=== PATIENT | female | born 1950 | race Caucasian/White ===

== ENCOUNTER → 2016-10-21 | Outpatient (CLI) | payer MEDICARE, BC ==
--- NOTE | 2016-10-21 11:40 | MM ---
Reason for exam: additional evaluation requested from prior study. Last mammogram was performed 1 year ago. History: Patient is postmenopausal. Benign ultrasound-guided cyst aspiration of the right breast, 2009. Benign excisional biopsy of the right breast, 2000. Took hormonal contraceptives for 2 years beginning at age 20. Physical Findings: Nurse Summary: 1cm nodule in the left breast at 1 o'clock (nurse johan). MG 3D Diag Mammo W/Cad KAYLEE Bilateral CC and MLO view(s) were taken. Prior study comparison: October 26, 2015, left breast MG 3d work up w/cad LT. October 20, 2015, bilateral MG screening mammo w CAD. There are scattered fibroglandular densities. Asymmetric breast tissue in the left breast. No significant new findings when compared with previous films. These results were verbally communicated with the patient and result sheet given to the patient on 10/21/16. ASSESSMENT: Benign, BI-RAD 2 RECOMMENDATION: Routine screening mammogram of both breasts in 1 year.
--- NOTE | 2016-10-21 11:41 | USB ---
Reason for exam: additional evaluation requested from prior study. History: Patient is postmenopausal. Benign ultrasound-guided cyst aspiration of the right breast, 2009. Benign excisional biopsy of the right breast, 2000. Took hormonal contraceptives for 2 years beginning at age 20. US Breast Limited LT Left breast ultrasound demonstrates no cystic or solid lesion seen. These results were verbally communicated with the patient and result sheet given to the patient on 10/21/16. ASSESSMENT: Negative, BI-RAD 1 RECOMMENDATION: Routine screening mammogram of both breasts in 1 year.
== END | disposition home or self-care (01) ==
LOC: RADMAMWWP 10:17
PROVIDERS: ATTEND Family Medicine
DX: R92.8 Other abnormal and inconclusive findings on diagnostic imaging of breast (principal)
CPT/HCPCS: 76642; G0204; G0279

== ENCOUNTER → 2016-11-15 | Outpatient (CLI) | payer MEDICARE, BC ==
--- NOTE | 2016-11-15 10:46 | ECHOS ---
DATE OF SERVICE: 11/15/2016 AGE: 66Y SEX: F HT: 62 WT: 210 lbs. Protocol Alfredo: X Others: Stress Echo Stage: II Dur. of Exercise: 4 minutes *Heart Rate Blood Pressure *Rest: 71 Rest: 152/52 * *Max. Achieved: 117 Maximum BP: 152/52 85% PMHR: 131 100% PMHR: 154 *METS: 5 INDICATIONS: Family history. MEDICATIONS: Simvastatin, pantoprazole. INDICATION OF THE STUDY: Chest pain. STRESS DATA: Pretesting physical examination showed a heart rate of 71, pressure is 152/52 mmHg. Baseline EKG shows sinus mechanism. The patient exercised on the treadmill according to Alfredo protocol for a total of 4 minutes and achieved 5 of METs. Max heart rate was 117 which is 76% of maximum predicted heart rate. Maximum blood pressure was 152/52 mmHg. Clinically, the patient did not have any symptoms of chest pain, but she developed some shortness of breath. The EKG did not show any significant ST or T wave abnormalities consistent with ischemia. ECHOCARDIOGRAM IMAGES: On echocardiogram images from parasternal long axis view, parasternal short axis view, apical 4 chamber and apical 2 chamber view were obtained as the baseline images, at the peak of the heart rate, as well as on recovery and the echocardiogram showed good augmentation in left ventricular systolic function without any evidence of wall motion abnormalities consistent with ischemia. CONCLUSION: 1. Non-diagnostic stress test due to the patient not achieving 85% of maximum predicted heart rate. 2. Normal EKG and echocardiogram in response to exercise up to the level was achieved, which is 76% of maximum predicted heart rate.
== END | disposition home or self-care (01) ==
LOC: RADNMMAIN 08:54
PROVIDERS: ATTEND Family Medicine
DX: R94.31 Abnormal electrocardiogram [ECG] [EKG] (principal); I10 Essential (primary) hypertension; E78.5 Hyperlipidemia, unspecified
CPT/HCPCS: 93017; 93350

== ENCOUNTER → 2017-02-13 | Outpatient (CLI) | payer MEDICARE, BC ==
[2017-02-13 15:41] VITALS: BP 136/81; PULSE 73; RESP 16; TEMP 99.2
--- NOTE | 2017-02-13 16:14 | P.HPBAR ---
Bariatric H&P - History & Physicial H&P Date: 02/13/17 History & Physicial: Visit/CC: sleeve follow-up Patient initial contact: Initial weight: 124.919 kg Initial weight in pounds: 275.40 Height: 5 ft 3 in Initial BMI: 48.7 Last weight: 2:15 Current weight: Current weight in pounds: Current BMI: [place] body weight (based on NIH guidelines): 52.163 kg Excess body weight loss: The patient is a 66 year-old F who presents for Bariatric Assessment. Patient presents today for sleeve gastric a fall. She's not been seen in over a year. The patient states that she has had issues with snacking. She has some mild GERD. Past Medical History Past Medical History: GERD/Reflux, Hyperlipidemia, Hypertension, Musculoskeletal Disorder, Sleep Apnea/CPAP/BIPAP Additional Past Medical History / Comment(s): neuropathy, hiatal hernia, History of Any Multi-Drug Resistant Organisms: None Reported Past Surgical History: Bariatric Surgery, Breast Surgery, Joint Replacement, Orthopedic Surgery, Tubal Ligation Additional Past Surgical History / Comment(s): right breast biopsy, sleeve 2014, RT hip replacement Past Anesthesia/Blood Transfusion Reactions: No Reported Reaction Past Psychological History: Depression Smoking Status: Never smoker Past Alcohol Use History: Rare Past Drug Use History: None Reported - Past Family History Mother Family Medical History: COPD Surgical - Exam Vital Signs Temp Pulse Resp BP 99.2 F 73 16 136/81 02/13/17 15:35 02/13/17 15:35 02/13/17 15:35 02/13/17 15:35 - General well developed, well nourished, no distress - Eyes PERRL - Abdomen Abdomen: soft, non tender Bariatric Assessment & Plan Plan: The patient has minimal GERD. Her GERD symptoms will be observed. The patient will focus on improved dietary habits. She'll try to avoid snacking. She'll follow-up in one month. Bariatric Checklist Checklist: Plan: Checklist: EGD: 1. Hiatal hernia: 2. H. Pylori: HgbA1c: Vitamin D: Smoking: Never smoker Primary care physician referral: Psychiatry clearance: Cardiology clearance: Sleep study: Diet journal: VTE risk score: VTE risk level: Rehab needs at discharge:
== END | disposition home or self-care (01) ==
LOC: BARWHC3 14:53
PROVIDERS: ATTEND Surgery
DX: Z09 Encounter for follow-up examination after completed treatment for conditions other than malignant neoplasm (principal); E78.5 Hyperlipidemia, unspecified; I10 Essential (primary) hypertension; K21.9 Gastro-esophageal reflux disease without esophagitis; F32.9 Major depressive disorder, single episode, unspecified; Z98.84 Bariatric surgery status
CPT/HCPCS: 99211

== ENCOUNTER → 2017-11-15 | Outpatient (CLI) | payer MEDICARE, BC ==
--- NOTE | 2017-11-17 08:48 | MM ---
Reason for exam: screening (asymptomatic). Last mammogram was performed 1 year and 1 month ago. History: Patient is postmenopausal. Benign ultrasound-guided cyst aspiration of the right breast, 2009. Benign excisional biopsy of the right breast, 2000. Took hormonal contraceptives for 2 years beginning at age 20. Physical Findings: A clinical breast exam by your physician is recommended on an annual basis and results should be correlated with mammographic findings. MG 3D Screening Mammo W/Cad Bilateral CC and MLO view(s) were taken. Prior study comparison: October 21, 2016, bilateral MG 3d diag mammo w/cad KAYLEE. October 26, 2015, left breast MG 3d work up w/cad LT. No significant changes when compared with prior studies. ASSESSMENT: Benign, BI-RAD 2 RECOMMENDATION: Routine screening mammogram of both breasts in 1 year.
== END | disposition home or self-care (01) ==
LOC: RADMAMWWP 09:12
PROVIDERS: ATTEND Family Medicine
DX: Z12.31 Encounter for screening mammogram for malignant neoplasm of breast (principal)
CPT/HCPCS: 77063; 77067

== ENCOUNTER → 2017-12-18 | Outpatient (CLI) | payer MEDICARE ==
--- NOTE | 2017-12-18 16:36 | BD ---
EXAMINATION TYPE: Axial Bone Density DATE OF EXAM: 12/18/2017 COMPARISON: NONE CLINICAL HISTORY: 67-year-old female screening for osteoporosis Height: 5 FT 1 1/2 IN Weight: 223 FRAX RISK QUESTIONS: History of Fracture in Adulthood: YES RISK FACTORS HISTORY OF: Surgery to Spine/Hip(right/left)/Wrist (right/left): RT HIP REPLACED When: 2016 Postmenopausal woman: AGE 45-50 Lost more than 2 inches in height since high school: YES MEDICATIONS: Additional Medications: SIMVASTATIN, PANTOPRAZOLE, GABAPENTIN, CITALOPRAM, HYDROCHLOROTHIAZIDE Additional History: EXAM MEASUREMENTS: Bone mineral densitometry was performed using the [employer] System. Bone mineral density as measured about the Lumbar spine is: ----- L1-L4(G/cm2): 1.071 T Score Values are as follows: ----- L2: -1.2 ----- L3: -1.2 ----- L4: -0.8 ----- L1-L4: -00.9 Bone mineral density has: INCREASED 3.3 % since study of: 2014 Bone mineral density about the L hip (g/cm2): 0.758 T Score values are as follows: -----L Neck: -2.0 -----L Total: -1.2 Bone mineral density has: DECREASED -4.2 % since study of: 2014 IMPRESSION: Osteopenia (T Score between -2.5 and -1). There is slightly increased risk of fracture and the patient may be considered for treatment. Re-Screen 2-5 years. NOTE: T-SCORE=SD OF THE YOUNG ADULT MEAN.
== END | disposition home or self-care (01) ==
LOC: RADBDWWP 15:21
PROVIDERS: ATTEND Family Medicine
DX: Z13.820 Encounter for screening for osteoporosis (principal); M85.80 Other specified disorders of bone density and structure, unspecified site
CPT/HCPCS: 77080

== ENCOUNTER → 2018-11-19 | Outpatient (CLI) | payer MEDICARE ==
--- NOTE | 2018-11-20 14:30 | MM ---
Reason for exam: screening (asymptomatic). Last mammogram was performed 1 year ago. History: Patient is postmenopausal. Benign ultrasound-guided cyst aspiration of the right breast, 2009. Benign excisional biopsy of the right breast, 2000. Took hormonal contraceptives for 2 years beginning at age 20. Physical Findings: A clinical breast exam by your physician is recommended on an annual basis and results should be correlated with mammographic findings. MG 3D Screening Mammo W/Cad Bilateral CC and MLO view(s) were taken. Prior study comparison: November 15, 2017, bilateral MG 3d screening mammo w/cad. October 21, 2016, bilateral MG 3d diag mammo w/cad KAYLEE. There are scattered fibroglandular densities. No significant changes when compared with prior studies. ASSESSMENT: Benign, BI-RAD 2 RECOMMENDATION: Routine screening mammogram of both breasts in 1 year.
== END | disposition home or self-care (01) ==
LOC: RADMAMWWP 10:58
PROVIDERS: ATTEND Family Medicine
DX: Z12.31 Encounter for screening mammogram for malignant neoplasm of breast (principal)
CPT/HCPCS: 77063; 77067

== ENCOUNTER 2020-01-01 08:38 | Day surgery (SDC) | payer MEDICARE ==
[2019-12-31 08:49] VITALS: BMI 35.6
[~2020-01-01 08:38] MED LIST: LACTATED RINGERS 1,000 ML IV SCH; LIDOCAINE 1% (10MG/ML) FOR IV START INTRADERMA PRN
[2020-01-01 09:19] VITALS: TEMP 97
[2020-01-01] MEDS ORDERED: ePHEDrine SULFATE/0.9% NACL/PF 50 MG/5 ML SYRINGE IV ONE (09:59)
[2020-01-01] MEDS ORDERED: PROPOFOL 10 MG/ML 20 ML VIAL IV ONE (09:59)
--- NOTE | 2020-01-01 10:17 | P.PCN ---
Date of Procedure: 01/01/20 Procedure(s) Performed: BRIEF HISTORY: Patient is a 69-year-old pleasant white female scheduled for an elective colonoscopy as a part of screening for colorectal neoplasia. PROCEDURE PERFORMED: Colonoscopy. PREOPERATIVE DIAGNOSIS: Screening for colon cancer. IV sedation per Anesthesia. PROCEDURE: After informed consent was obtained, the patient, was brought into the endoscopy unit. IV sedation was administered by Anesthesia under continuous monitoring. Digital rectal examination was normal. Initially the Olympus CF-160 flexible video colonoscope was then inserted in the rectum, gradually advanced into the cecum without any difficulty. Careful examination was performed as the scope was gradually being withdrawn. Ileocecal valve and the appendiceal orifice were visualized and appeared normal. Prep was good Mcosa of the cecum, ascending colon, transverse colon, descending colon, sigmoid colon, and rectum appeared normal. Retroflexion was performed in the rectum and no lesions were seen. The patient tolerated the procedure well. IMPRESSION: Normal-appearing colon from rectum to cecum with no evidence of colon rectal neoplasia . RECOMMENDATIONS: Findings of this examination were discussed with the patient as well as a family. She was advised to have a repeat screening colonoscopy in .
[2020-01-01 10:35] VITALS: BP 132/80; PULSE 67; RESP 20
== END 2020-01-01 11:01 | disposition home or self-care (01) ==
LOC: ORWHC2ENDO 08:38
PROVIDERS: ATTEND Internal Medicine Gastroenterology
DX: Z12.11 Encounter for screening for malignant neoplasm of colon (principal); I10 Essential (primary) hypertension; E78.5 Hyperlipidemia, unspecified; G47.33 Obstructive sleep apnea (adult) (pediatric); F32.9 Major depressive disorder, single episode, unspecified; G62.9 Polyneuropathy, unspecified; Z79.899 Other long term (current) drug therapy; Z98.42 Cataract extraction status, left eye; Z98.51 Tubal ligation status; Z98.84 Bariatric surgery status; Z96.649 Presence of unspecified artificial hip joint; Z98.890 Other specified postprocedural states
CPT/HCPCS: J2704; G0121

== ENCOUNTER → 2020-01-27 | Outpatient (CLI) | payer MEDICARE ==
--- NOTE | 2020-01-27 11:56 | BD ---
EXAMINATION TYPE: Axial Bone Density DATE OF EXAM: 01/27/2020 COMPARISON: DEXA bone scan December 18, 2017 CLINICAL HISTORY: Postmenopausal female. Height: 62 Weight: 194.5 FRAX RISK QUESTIONS: Alcohol (3 or more units per day): no Family History (Parent hip fracture): yes Glucocorticoids (More than 3mos): no (Ex: prednisone, prednisolone, methylprednisolone, dexamethasone, and hydrocortisone). History of Fracture in Adulthood: no Secondary Osteoporosis: 1. Type 1 Diabetes: no 2. Hyperthyroidism: no 3. Menopause before 45: no 4. Malnutrition: no 5. Chronic liver disease: no Rheumatoid Arthritis: no Current Tobacco Use: no RISK FACTORS HISTORY OF: Surgery to Spine/Hip(right/left)/Wrist (right/left): right hip When: 2013 Family History of Osteoporosis: no Active: yes Diet low in dairy products/other sources of calcium: yes Postmenopausal woman: around age 50 Lost more than 2 inches in height since high school: no MEDICATIONS: blood pressure, cholesterol meds, acid reflux meds Additional History: EXAM MEASUREMENTS: Bone mineral densitometry was performed using the [employer] System. Bone mineral density as measured about the Lumbar spine is: ----- L1-L4(G/cm2): 1.117 T Score Values are as follows: ----- L2: -0.2 ----- L3: -0.9 ----- L4: 0.2 ----- L1-L4: -0.5 Bone mineral density has: increased 6.3 % since study of: 12.18.2017 Bone mineral density about the L hip (g/cm2): 0.736 T Score values are as follows: -----L Neck: -2.2 -----L Total: -1.5 Bone mineral density has: decreased -4.5 % since study of: 12.18.2017 IMPRESSION: Osteopenia (T Score between -2.5 and -1) remains present. There remains slightly increased risk of fracture and the patient may be considered for treatment. Re-Screen 2-5 years. NOTE: T-SCORE=SD OF THE YOUNG ADULT MEAN.
--- NOTE | 2020-01-27 14:33 | MM ---
Reason for exam: screening (asymptomatic). Last mammogram was performed 1 year and 2 months ago. History: Patient is postmenopausal. Benign ultrasound-guided cyst aspiration of the right breast, 2009. Benign excisional biopsy of the right breast, 2000. Took hormonal contraceptives for 2 years beginning at age 20. Physical Findings: A clinical breast exam by your physician is recommended on an annual basis and results should be correlated with mammographic findings. MG 3D Screening Mammo W/Cad Bilateral CC and MLO view(s) were taken. Prior study comparison: November 19, 2018, bilateral MG 3d screening mammo w/cad. November 15, 2017, bilateral MG 3d screening mammo w/cad. The breast tissue is heterogeneously dense. This may lower the sensitivity of mammography. There are benign appearing round calcifications bilaterally. Asymmetric breast tissue left upper outer quadrant is stable. There is no discrete abnormality. ASSESSMENT: Benign, BI-RAD 2 RECOMMENDATION: Routine screening mammogram of both breasts in 1 year.
== END | disposition home or self-care (01) ==
LOC: RADMAMWWP 07:31
PROVIDERS: ATTEND Family Medicine
DX: Z12.31 Encounter for screening mammogram for malignant neoplasm of breast (principal); Z78.0 Asymptomatic menopausal state
CPT/HCPCS: 77063; 77067; 77080

== ENCOUNTER → 2023-05-03 | Outpatient (CLI) | payer MEDICARE ==
--- NOTE | 2023-05-08 13:07 | BD ---
EXAMINATION TYPE: Axial Bone Density DATE OF EXAM: 05/03/2023 CLINICAL HISTORY: 72 years old Female. ICD-10 CODE: Z78.0 Asymptomatic menopausal state Height: 61 in Weight: 221 lbs FRAX RISK QUESTIONS: Family History (Parent hip fracture): yes father Secondary Osteoporosis: 3. Menopause before 45: age 55 RISK FACTORS HISTORY OF: Surgery to Hip(right): age 64 Active: yes Diet low in dairy products/other sources of calcium: yes Postmenopausal woman: age 55 Lost more than 2 inches in height since high school: yes 2 06/20" MEDICATIONS: Additional Medications: vit d, arthritis meds, cholesterol meds, gerd meds, neuropathy meds EXAM MEASUREMENTS: Bone mineral densitometry was performed using the [employer] System. Bone mineral density as measured about the Lumbar spine is: ----- L1-L4(G/cm2): 1.144 T Score Values are as follows: ----- L1: -0.8 ----- L2: -0.7 ----- L3: 0.8 ----- L4: -0.5 ----- L1-L4: -0.3 Z Score Values are as follows: ----- L1: -0.3 ----- L2: -0.2 ----- L3: 1.3 ----- L4: 0.1 ----- L1-L4: 0.2 Bone mineral density has: Increased 2.4% since study of: 01/27/2020 Bone mineral density about the L hip (g/cm2): 0.766 T Score values are as follows: -----L Neck: -2.2 -----L Total: -1.9 Z Score values are as follows: -----L Neck: -1.2 -----L Total: -1.2 Bone mineral density has: Decreased -6.5% since study of: 01/27/2020 FRAX%s: The graph provided illustrates a 29.4% chance for a major osteoporotic fx and a 12.3% chance for the hips probability for fx in 10 years time. IMPRESSION: Osteopenia (T Score between -2.5 and -1). There is slightly increased risk of fracture and the patient may be considered for treatment. Re-Screen 2-5 years. NOTE: T-SCORE=SD OF THE YOUNG ADULT MEAN.
--- NOTE | 2023-05-25 12:38 | MM ---
Reason for Exam: Screening (asymptomatic). Last screening mammogram was performed 9 month(s) ago. Patient History: Menarche at age 11. First Full-Term at age 15. Postmenopausal. Hormonal Contraceptives, starting at age 20 for 2 years. 2000, Benign Excisional Biopsy on the right side. 2009, Benign Ultrasound-Guided Cyst Aspiration on the right side. Risk Values: Meredith 5 year model risk: 1.6%. NCI Lifetime model risk: 4.3%. Prior Study Comparison: 11/15/2017 Bilateral Screening Mammogram, [facility]. 11/19/2018 Bilateral Screening Mammogram, [facility]. 01/27/2020 Bilateral Screening Mammogram, [facility]. 05/21/2021 Bilateral Screening Mammogram, [facility]. 07/27/2022 Bilateral Screening Mammogram, [facility]. Tissue Density: The breast tissue is heterogeneously dense. This may lower the sensitivity of mammography. Findings: Analyzed By CAD. There is no suspicious group of microcalcifications or new suspicious mass in either breast. Overall Assessment: Benign, BI-RAD 2 Management: Screening Mammogram of both breasts in 1 year. . Patient should continue monthly self-breast exams. A clinical breast exam by your physician is recommended on an annual basis. This exam should not preclude additional follow-up of suspicious palpable abnormalities. Note on Meredith scores and lifetime risk: 1. A Meredith score greater than 3% is considered moderate risk. If this is the case, consider specialist referral to assess eligibility for a risk reducing agent. 2. If overall lifetime risk for the development of breast cancer is 20% or higher, the patient may qualify for future screening with alternating mammogram and breast MRI. Electronically signed and approved by: Justo Munson M.D. Radiologis
== END | disposition home or self-care (01) ==
LOC: RADMAMWWP 14:34
PROVIDERS: ATTEND Family Medicine
DX: Z12.31 Encounter for screening mammogram for malignant neoplasm of breast (principal); M85.852 Other specified disorders of bone density and structure, left thigh; Z78.0 Asymptomatic menopausal state
CPT/HCPCS: 77063; 77067; 77080